=== PATIENT | male | born 1990 | race Two or more races ===

== ENCOUNTER 2016-10-28 21:10 | Emergency (ER) | payer SELFPAY ==
[2016-10-28 21:18] VITALS: BMI 25.7
[2016-10-28] MEDS ORDERED: TORADOL 30 MG VIAL IVP STA (22:32)
[2016-10-28] MEDS ORDERED: NS 1000 ML 1,000 ML IV ONE (22:33)
[2016-10-28] MEDS ORDERED: TORADOL 30 MG VIAL ONE (22:38)
[2016-10-28] MEDS ORDERED: NS 1000 ML 1,000 ML ONE (22:38)
[2016-10-28] MEDS ORDERED: NS 100 ML IV + SPIKE MINIBAG* 100 ML IV ONE (22:40)
--- NOTE | 2016-10-28 22:44 | DR.GENAD ---
HPI - Complaint/Symptoms Chief Complaint Doctors Comments: Patient complains of RLQ pain for the past two days getting worst tonight with vomiting but denies fever, chills, or any recent trauma. He denies tobacco use but drinks at times but has not had anyting to drink today. States he does not have a local doctor. He is not taking any medicines. He has not had any operations. He denies hematuria, diarrhea or timothy. Chief Complaint:: RIGHT LOWER QUADRANT PAIN - Nurses notes reviewed Nurses Notes Review: Yes - Source History Provided: Patient, Friend (tie sawyer) - Mode of Arrival Mode of Arrival: Ambulatory - Timing Onset of Chief Complaint: 10/26/16 Came on: Gradually - Duration Duration: Constant How lon Duration: Days - Location Location: right lower abdominal pain - Severity Severity: Mild - Modifying Factors Worsens:: movement Improves:: nothing PMH - PMH Past Medical History: No Past Surgical History: No - Family History History of Family Medical Conditions: No - Social History Does any household member use tobacco: No Alcohol Use: None Do you use any recreational Drugs:: No Lives With: Friend Lives Where: Home - infectious screening In the last 2 months have you had wt loss of >10#?: NO Have you had fever, night sweats or hemotysis?: No Have you traveled outside the country in the last 6 months?: No Isolation: Standard ROS - Review of Systems Constitutional: No Symptoms Reported, Loss of Appetite. negative: See HPI, Chills, Diaphoresis, Fever, Malaise, Weakness, Irritable, Fatigue, Other Eyes: No Symptoms Reported ENTM: No Symptoms Reported. negative: See HPI, Ear Pain, Ear Discharge, Pulling on Ears, Hearing Loss, Nose Pain, Nose Discharge, Epistaxis, Nose Congestion, Mouth Pain, Mouth Swelling, Loose Teeth, Drooling, Throat Pain, Throat Swelling, Ear Foreign Body Respiratoy: No Symptoms Reported. negative: See HPI, Productive Cough, Non- Productive Cough, Moist Cough, Dry Cough, Hacking Cough, Barking Cough, Brassy Cough, Orthopnea, Short of Breath, Stridor, Wheezing, Hemoptysis, Other Cardiovascular: No Symptoms Reported Gastrointestinal/Abdominal: No Symptoms Reported, Abdominal Pain, Vomiting. negative: See HPI, Constipation, Diarrhea, Nausea, Food Intolerance, Other Genitourinary: No Symptoms Reported. negative: See HPI, Discharge, Dysuria, Frequency, Hematuria, Pain, Bleeding, Other Neurological: No Symptoms Reported. negative: See HPI, Anxiety, Depressed, Emotional Problems, Headache, Numbness, Paresthesia, Pre-existing Deficit, Seizure, Tingling, Tremors, Weakness, Dizziness, Problems Walking, Speech Problem, Other Musculoskeletal: No Symptoms Reported Integumentary: No Symptoms Reported Hematologic/Lymphatic: No Symptoms Reported Endocrine: No Symptoms Reported Psychiatric: No Symptoms Reported PE - Vital Signs Vitals: Temperature 99.4 F Pulse Rate 73 Respiratory Rate 16 Blood Pressure 117/70 O2 Sat by Pulse Oximetry 100 - General Limitations: No Limitations General Appearance: Alert, In Distress (mild) - Head Head Exam: Normal Inspection, Atraumatic, Normocephalic - Eyes Eye exam: Normal Appearance, PERRL, EOMI. negative: Scleral Icterus, Conjunctival Injection, Nystagmus, Miosis, Mydrasis, Periorbital Swelling, Periorbital Tenderness, Other - ENT ENT Exam: Normal Exam, Normal Oropharynx, Normal External Ear Exam, Mucous Membranes Moist, TM's Normal Bilaterally External Ear Exam: Normal External Inspection TM/Canal Exam: Bilateral Normal Nose Exam: Normal Nose Exam Mouth Exam: Normal Inspection Throat Exam: Normal Inspection - Neck Neck Exam: Normal Inspection, Full ROM, Trachea Midline - Chest Chest Inspection: Normal Inspection, Symmetric Chest Wall Rise - Respiratory Respiratory Exam: Normal Lung Sounds Bilat Respiratory Exam: Bilateral Clear to Auscultation - Cardiovascular Cardiovascular Exam: Regular Rate, Normal Rhythm, Normal Heart Sounds - Abdominal Exam Abdominal Exam: Normal Inspection, Normal Bowel Sounds, Soft, Tenderness (RLQ tenderness with rebound), Rebound, Dimnished Bowel Sounds Abdominal Tenderness: RLQ, Moderate - Extremities Extremities Exam: Normal Inspection, Full ROM, Normal Capillary Refill. negative: Tenderness, Edema, Joint Swelling, Calf Tenderness, Other - Back Back Exam: Normal Inspection, Full ROM - Neurologic Neurological Exam: Alert, Oriented X3, CN II-XII Intact, Normal Gait, Reflexes Normal - Psychiatric Psychiatric Exam: Normal Affect, Normal Mood - Skin Skin Exam: Warm, Dry, Intact, Normal Color Course - Reevaluation 1st: - Consultation Called: 00:48 Call Returned: 01:04 (Dr. Banks accepted patient in transfer to [facility]) Consultation Comments: 0100 Dr. Yoav Payne accepting physician at ER in [place]. - Education/Counseling Education/Counseling: Patient, Family Educated On: Treatment, Diagnosis, Needs for Follow Up ROR - Labs Reviewed Laboratory Results Reviewed?: Yes (All labs and x-ray results reviewed and discussed with patient) Result Diagrams: 10/28/16 22:45 10/28/16 22:45 Laboratory: WBC 14.9 X10^3/uL (3.6-10.0) H 10/28/16 22:45 RBC 5.60 X10^6/uL (4.7-6.0) 10/28/16 22:45 Hgb 16.5 g/dL (13.5-18.0) 10/28/16 22:45 Hct 48.6 % (42.0-54.0) 10/28/16 22:45 MCV 86.7 fL (80.0-100.0) 10/28/16 22:45 MCH 29.4 pg (27.0-34.0) 10/28/16 22:45 MCHC 34.0 g/dL (33.0-35.0) 10/28/16 22:45 RDW 12.6 % (11.6-16.5) 10/28/16 22:45 Plt Count 311 X10^3/uL (150.0-450.0) 10/28/16 22:45 MPV 7.5 fL (7.4-11.0) 10/28/16 22:45 Neut % 81.5 % (42.0-75.0) H 10/28/16 22:45 Lymph % 10.1 % (21.0-51.0) L 10/28/16 22:45 Castro % 7.3 % (0.0-13.0) 10/28/16 22:45 Eos % 0.6 % (0.9-2.9) L 10/28/16 22:45 Baso % 0.5 % (0.2-1.0) 10/28/16 22:45 Neut # 12.1 x10^3/uL (2.2-4.8) H 10/28/16 22:45 Lymph # 1.5 X10^3/uL (1.3-2.9) 10/28/16 22:45 Castro # 1.1 x10^3/uL (0.3-0.8) H 10/28/16 22:45 Eos # 0.1 x10^3/uL (0.0-0.2) 10/28/16 22:45 Baso # 0.1 X10^3/uL (0.0-0.1) 10/28/16 22:45 Absolute Nucleated RBC 0.0 /100WBC 10/28/16 22:45 Sodium 144 mmol/L (136-145) 10/28/16 22:45 Corrected Sodium TNP 10/28/16 22:45 Potassium 4.1 mmol/L (3.5-5.1) 10/28/16 22:45 Chloride 103 mmol/L (98-107) 10/28/16 22:45 Carbon Dioxide 29.2 mmol/L (21-32) 10/28/16 22:45 BUN 10 mg/dL (7-18) 10/28/16 22:45 Creatinine 1.15 mg/dL (0.70-1.30) 10/28/16 22:45 Est GFR (MDRD) Af Amer > 60 (>60) 10/28/16 22:45 Est GFR (MDRD) Non-Af > 60 (>60) 10/28/16 22:45 Glucose 105 mg/dL (65-99) H 10/28/16 22:45 Calcium 9.8 mg/dL (8.5-10.1) 10/28/16 22:45 Corrected Calcium TNP 10/28/16 22:45 Total Bilirubin 1.90 mg/dL (0.2-1.0) H 10/28/16 22:45 AST 23 Units/L (15-37) 10/28/16 22:45 ALT 49 Units/L (12-78) 10/28/16 22:45 Alkaline Phosphatase 92 Units/L (46-116) 10/28/16 22:45 Total Protein 9.1 g/dL (6.4-8.2) H 10/28/16 22:45 Albumin 4.8 g/dL (3.4-5.0) 10/28/16 22:45 Globulin 4.3 g/dL (2.5-4.5) 10/28/16 22:45 Albumin/Globulin Ratio 1.1 Ratio (1.1-2.1) 10/28/16 22:45 Amylase 55 Units/L (25-115) 10/28/16 22:45 Lipase 80 Units/L (73-393) 10/28/16 22:45 Specimen Type Clean catch urine 10/29/16 00:04 Urine Color Pale yellow (YELLOW) 10/29/16 00:04 Urine Appearance Clear (CLEAR) 10/29/16 00:04 Urine pH 7.0 (5.0 - 8.0) 10/29/16 00:04 Ur Specific [place] 1.010 (1.000-1.030) 10/29/16 00:04 Urine Protein Negative (NEGATIVE) 10/29/16 00:04 Urine Glucose (UA) Negative (NEGATIVE) 10/29/16 00:04 Urine Ketones Negative (NEGATIVE) 10/29/16 00:04 Urine Occult Blood Negative (NEGATIVE) 10/29/16 00:04 Urine Nitrite Negative (NEGATIVE) 10/29/16 00:04 Urine Bilirubin Negative (NEGATIVE) 10/29/16 00:04 Urine Urobilinogen Normal (NORMAL) 10/29/16 00:04 Ur Leukocyte Esterase Negative (NEGATIVE) 10/29/16 00:04 Urine RBC 0-3 /HPF (NEGATIVE) 10/29/16 00:04 Urine WBC 0-3 /HPF (NEGATIVE) 10/29/16 00:04 Ur Squamous Epith Cells Rare /HPF (NEGATIVE) 10/29/16 00:04 Urine Bacteria Negative /HPF (NEGATIVE) 10/29/16 00:04 Ur Culture Indicated? No/not indicated 10/29/16 00:04 - XRAY XRAY Interpreted by: Radiologist (CT abdomen: Appendicolith in rightl lower quadrant and appendix appears slightly dilated which may indicat acute appendicitis) - Diagnosis Discharge Problem: Probable acute appendicitis Abdominal pain Qualifiers: Abdominal location: right lower quadrant Qualified Code(s): R10.31 - Right lower quadrant pain - Discharge Plan Disposition: Disch/Tx to Hospital Condition: Stable - Follow ups/Referrals Follow ups/Referrals: NFD,None [Primary Care Provider] - 3 days - Instructions
[2016-10-28 22:56] LABS: BASOPHILS # (AUTO) 0.1 X10^3/uL (0.0-0.1); BASOPHILS % (AUTO) 0.5 % (0.2-1.0); EOSINOPHILS # (AUTO) 0.1 x10^3/uL (0.0-0.2); EOSINOPHILS % (AUTO) 0.6 % (0.9-2.9); HEMATOCRIT 48.6 % (42.0-54.0); HEMOGLOBIN 16.5 g/dL (13.5-18.0); LYMPHOCYTES # (AUTO) 1.5 X10^3/uL (1.3-2.9); LYMPHOCYTES % (AUTO) 10.1 % (21.0-51.0); MEAN CORPUSCULAR HEMOGLOBIN 29.4 pg (27.0-34.0); MEAN CORPUSCULAR VOLUME 86.7 fL (80.0-100.0); MEAN PLATELET VOLUME 7.5 fL (7.4-11.0); MONOCYTES # (AUTO) 1.1 x10^3/uL (0.3-0.8); MONOCYTES % (AUTO) 7.3 % (0.0-13.0); NEUTROPHILS # (AUTO) 12.1 x10^3/uL (2.2-4.8); NEUTROPHILS % (AUTO) 81.5 % (42.0-75.0); PLATELET COUNT 311 X10^3/uL (150.0-450.0); RED CELL DISTRIBUTION WIDTH 12.6 % (11.6-16.5); WHITE BLOOD COUNT 14.9 X10^3/uL (3.6-10.0)
[2016-10-28 23:09] LABS: ALANINE AMINOTRANSFERASE 49 Units/L (12-78); ALBUMIN 4.8 g/dL (3.4-5.0); ALKALINE PHOSPHATASE 92 Units/L (46-116); AMYLASE 55 Units/L (25-115); ASPARTATE AMINO TRANSFERASE 23 Units/L (15-37); BLOOD UREA NITROGEN 10 mg/dL (7-18); CALCIUM 9.8 mg/dL (8.5-10.1); CARBON DIOXIDE 29.2 mmol/L (21-32); CHLORIDE 103 mmol/L (98-107); CREATININE 1.15 mg/dL (0.70-1.30); GLUCOSE 105 mg/dL (65-99); LIPASE 80 Units/L (73-393); SODIUM 144 mmol/L (136-145); TOTAL PROTEIN 9.1 g/dL (6.4-8.2); eGFR BLACK RACES > 60 (>60); eGFR NON BLACK RACES > 60 (>60)
--- NOTE | 2016-10-29 00:13 | CT ---
EXAM: CT ABDOMEN AND PELVIS WITH CONTRAST INDICATION: Right lower quadrant pain COMPARISION: No priors available for comparison TECHNIQUE: Axial CT examination of the abdomen and pelvis was performed with intravenous contrast. The patient received intravenous contrast without adverse reaction. Coronal and sagittal reconstructions were c reated using the axial data. FINDINGS: The lung bases are clear. The liver, spleen, pancreas, adrenal glands, kidneys, and gallbladder are normal. There is no evidence of biliary ductal dilatation. The aorta and inferior vena cava are norm al in caliber. The bowel loops are nonobstructed. No abnormal mass, lymphadenopathy, or fluid collection. Urinary bladder is normal. In the right lower quadrant adjacent to the cecum there is a calcific de nsity measuring 5 mm in diameter which could represent an appendicolith. The appendix is poorly deli neated. The diameter the appendix is estimated at 7 mm which is slightly above the upper limits of n ormal. The regional skeleton is intact. IMPRESSION: There is now appendicolith in the right lower quadrant and the appendix appears slightly dilated whi ch may indicate acute appendicitis. No free air or abscess. Reported By:
[2016-10-29 00:15] LABS: BILIRUBIN,URINE NEGATIVE (NEGATIVE); BLOOD/HEMOGLOBIN,URINE NEGATIVE (NEGATIVE); GLUCOSE, URINE NEGATIVE (NEGATIVE); KETONES,URINE NEGATIVE (NEGATIVE); LEUKOCYTE ESTERASE ,URINE NEGATIVE (NEGATIVE); NITRITES,URINE NEGATIVE (NEGATIVE); PROTEIN,URINE NEGATIVE (NEGATIVE); UROBILINOGEN,URINE NORMAL (NORMAL)
[2016-10-29 00:34] LABS: APPEARANCE,URINE CLEAR (CLEAR); BACTERIA,URINE NEGATIVE /HPF (NEGATIVE); COLOR,URINE PALE YELLOW (YELLOW); RBC,URINE 0-3 /HPF (NEGATIVE); SQUAMOUS EPITHELIAL CELL,UR RARE /HPF (NEGATIVE)
[2016-10-29] MEDS ORDERED: ROCEPHIN VIAL 1 GM 1 GM in NS 50 ML IV + SPIKE MINIBAG* 50 ML IV ONE (00:44)
[2016-10-29] MEDS ORDERED: MORPHINE SULFATE INJ 2 MG IVP ONE (00:47)
[2016-10-29] MEDS ORDERED: ROCEPHIN VIAL 1 GM ONE (01:23)
[2016-10-29] MEDS ORDERED: NS 1/2 1000 ML IV 1,000 ML IV ONE (01:23)
[2016-10-29] MEDS ORDERED: MORPHINE SULFATE INJ 2 MG ONE (01:23)
[2016-10-29] MEDS ORDERED: NS 50 ML IV + SPIKE MINIBAG* 50 ML IV ONE (01:24)
[2016-10-29 01:58] VITALS: BP 127/79
[2016-10-29] MEDS ORDERED: NS 1/2 1000 ML IV 1,000 ML IV SCH (02:00)
== END 2016-10-29 01:55 | disposition hospice, inpatient (51) ==
LOC: ER 21:10
DX: R10.31 Right lower quadrant pain (principal)
CPT/HCPCS: 36415; 74177; 80053; 81001; 82150; 83690; 85025; 96365; 96367; 96374; 96375; 99283; 99285; A4216; A4222; J0696; J1885; J2270